=== PATIENT | male | born 1935 ===

== ENCOUNTER → 2016-12-05 | Outpatient (CLI) | payer MEDICARE, OTHER ==
--- NOTE | 2016-12-06 09:27 | RADRPT ---
PROCEDURE: XR left knee. CLINICAL INDICATION: Knee pain TECHNIQUE: AP weightbearing, PA weightbearing, lateral weightbearing and sunrise views are availab le for review. COMPARISON: None available FINDINGS: There is moderate osteoarthrosis involving the medial tibial femoral compartment (joint space narrow ing) and patellofemoral compartment (joint space narrowing and osteophytosis ). There is otherwise normal mineralization, architecture and alignment. No fractures are identified. No osseous lesions are identified. The soft tissues are unremarkable. IMPRESSION: Moderate osteoarthrosis involving the medial tibial femoral compartment (joint space narrowing) and patellofemoral compartment (joint space narrowing and osteophytosis ) RPTAT: HGDB .Slick Perera MD, MD Date Time Electronically viewed and signed by .Slick Perera MD, on 12/06/2016 09:27 .B/
== END | disposition home or self-care (01) ==
LOC: HKI 13:31
PROVIDERS: ATTEND Orthopaedic Surgery
DX: M17.12 Unilateral primary osteoarthritis, left knee (principal); M25.562 Pain in left knee
CPT/HCPCS: 73564; G0463

== ENCOUNTER → 2017-01-11 | Outpatient (CLI) | payer MEDICARE, OTHER ==
--- NOTE | 2017-01-11 14:11 | RADRPT ---
PROCEDURE: Limited x-ray of both lower extremities. CLINICAL INDICATION: Bilateral leg pain. TECHNIQUE: Single frontal view of both lower extremities was obtained from the hips to the calves. COMPARISON: None. FINDINGS: The hips are not completely included on the image. There is a metallic penile prosthesis. There ar e degenerative changes of both knees with osteophytes and bilateral medial joint compartment narrowi ng. IMPRESSION: 1. It is not completely included on the image. 2. Metallic penile prosthesis. 3. Moderate degenerative changes of both knees. RPTAT: QQ .Jam Smallwood MD, MD Date Time Electronically viewed and signed by .Jam Smallwood MD, on 01/11/2017 14:10 .R/
== END | disposition home or self-care (01) ==
LOC: HKI 09:55
PROVIDERS: ATTEND Orthopaedic Surgery
DX: M25.562 Pain in left knee (principal); M17.12 Unilateral primary osteoarthritis, left knee
CPT/HCPCS: 77073; G0463

== ENCOUNTER 2017-01-17 05:41 | Inpatient (IN) | payer MEDICARE, OTHER ==
[2017-01-17] VITALS (29 sets, daily range): BP systolic 136–164; BP diastolic 64–80; PULSE 50–90; RESP 9–21; Ht 181.6 cm; Wt 94.2 kg
[~2017-01-17] VITALS: Ht 181.6 cm; Wt 94.2 kg
[2017-01-17] MEDS ORDERED: EXPAREL NOTE (BUPIVICAINE LIPOSOMAL) XX SCH (06:00)
[2017-01-17] MEDS ORDERED: PREGABALIN 300 MG PO X1 PO SCH (06:00)
[2017-01-17] MEDS ORDERED: TRANEXAMIC ACID 910 MG in SOD CHLORIDE 0.9% 100 ML IVPB SCH (06:00)
[2017-01-17] MEDS ORDERED: TRANEXAMIC ACID 910 MG in SOD CHLORIDE 0.9% 90.9 ML IV SCH (06:00)
[2017-01-17] MEDS ORDERED: LACTATED RINGER'S 1,000 ML IV SCH (06:00)
[2017-01-17] MEDS ORDERED: CEFAZOLIN 2GM/50 ML (PMX) 50 ML X1 BEFORE INCISION IVPB SCH (06:00)
[2017-01-17] MEDS ORDERED: PAIN COCKTAIL-CEFUROXIME IRR SCH ×7 (06:00)
[2017-01-17] MEDS ORDERED: CELECOXIB 400 MG PO X1 DOSE PO SCH (06:00)
[2017-01-17] MEDS ORDERED: BUPIVACAINE LIPOSOME/PF 266 MG/20 ML VIAL INFIL SCH (06:00)
[2017-01-17] MEDS: oxyCODONE (CR) 10 MG TAB [oxyCONTIN] X1 DOSE PO SCH ×4 (06:33→12:49)
[2017-01-17] MEDS: traMADOL 50 MG TAB X 1 DOSE PO SCH ×2 (06:33→12:49)
[2017-01-17] MEDS ORDERED: ATOR40TA68 PO (06:47)
[2017-01-17] MEDS ORDERED: BENA20TA48 PO (06:47)
[2017-01-17] MEDS ORDERED: AMLO2.5T78 PO (06:47)
[2017-01-17] MEDS ORDERED: ETOMIDATE 20 MG INJ ONE (07:00)
[2017-01-17] MEDS ORDERED: SODIUM CL BACTERIOSTATIC 30 ML INJ ONE (07:02)
[2017-01-17] MEDS ORDERED: POLYMYXIN B 500000 UNIT INJ ONE (07:02)
[2017-01-17] MEDS ORDERED: VANCOMYCIN 1 GM INJ ONE (07:02)
[2017-01-17] MEDS ORDERED: GLYCOPYRROLATE 0.4 MG INJ ONE (07:13)
[2017-01-17] MEDS ORDERED: PROPOFOL 0 ML ONE (07:13)
[2017-01-17] MEDS ORDERED: NEOSTIGMINE 3 MG/3 ML SYRINGE ONE (07:13)
[2017-01-17] MEDS ORDERED: DEXAMETHASONE 4 MG/ML 1 ML INJ ONE (07:13)
[2017-01-17] MEDS ORDERED: FENTAnyl 50 MCG/ML VIAL ONE (07:13)
[2017-01-17] MEDS ORDERED: ROCURONIUM 50 MG INJ ONE (07:13)
[2017-01-17] MEDS ORDERED: CEFAZOLIN 1 GM INJ ONE (07:13)
[2017-01-17] MEDS ORDERED: ONDANSETRON 4 MG INJ ONE (07:13)
[2017-01-17] MEDS ORDERED: MIDAZOLAM 1 MG/ML 2 ML INJ ONE (07:13)
--- NOTE | 2017-01-17 07:20 | HPN ---
Date/Time of Note Date/Time of Note DATE: 01/17/17 TIME: 07:20 Interval H&P Admission Note Pt. seen H&P reviewed: No system changes No changes from H&P on 01/03/17 by SHELTON Park MD Jan 17, 2017 07:20
[2017-01-17] MEDS ORDERED: BACITRACIN 50000 UNITS INJ IRR ONE (08:17)
[2017-01-17] MEDS ORDERED: PROPOFOL 100 ML ONE (08:25)
[2017-01-17] MEDS ORDERED: TRIMETHOBENZAMIDE 100 MG/ML VIAL IM PRN (08:30)
[2017-01-17] MEDS ORDERED: LABETALOL HCL 20MG INJ IV PRN (08:30)
[2017-01-17] MEDS ORDERED: DIPHENHYDRAMINE 50 MG INJ IV PRN (08:30)
[2017-01-17] MEDS ORDERED: MEPERIDINE 25 MG INJ IV PRN (08:30)
[2017-01-17] MEDS ORDERED: HYDROmorphONE (0.2 MG/ML) 10ML SYG IV PRN ×3 (08:30)
[2017-01-17] MEDS ORDERED: ONDANSETRON 4 MG INJ IV PRN ×2 (08:30→10:00)
[2017-01-17] MEDS ORDERED: hydrALAzine 20 MG INJ IV PRN (08:30)
[2017-01-17] MEDS ORDERED: FENTAnyl 50 MCG/ML VIAL IV PRN ×3 (08:30)
[2017-01-17] MEDS ORDERED: MIDAZOLAM 1 MG/ML 2 ML INJ IV PRN (08:30)
[2017-01-17] MEDS ORDERED: EPHEDrine SULFATE 50 MG/5 ML SYG IV PRN (08:30)
[2017-01-17] MEDS ORDERED: MAGNESIUM HYDROXIDE 30ML CUP PO PRN (10:00)
[2017-01-17] MEDS ORDERED: ASPIRIN (EC) 325 MG TAB PO ONE ×2 (10:00→10:07)
[2017-01-17] MEDS ORDERED: NACL 0.9% 3 ML SYG IV SCH (10:00)
[2017-01-17] MEDS ORDERED: HYDROCODONE/APAP (5/325) TAB PO PRN ×2 (10:00)
[2017-01-17] MEDS ORDERED: DIPHENHYDRAMINE 25 MG CAP PO PRN (10:00)
[2017-01-17] MEDS ORDERED: BISACODYL 10 MG SUPP PR PRN (10:00)
[2017-01-17] MEDS ORDERED: NA PHOSPHATE/BIPHOS 133 ML ENEMA PR PRN (10:00)
--- NOTE | 2017-01-17 10:05 | OPR ---
Date/Time of Note Date/Time of Note DATE: 01/17/17 TIME: 09:58 Operative Report Free Text/Dictation Dictation # [id number] Procedure Date: Jan 17, 2017 Preoperative Diagnosis Left Knee OA Postoperative Diagnosis Same Operation Performed Left TKA Surgeon: SHELTON GIL MD case management assistant: RUTHY CHUNG PA-C Anesthesia: general, spinal Anesthesiologist: Rachid Tony M.D. Tourniquet Time: 59 min Estimated Blood Loss: 50 - 100 ml's Specimens Bone and soft tissue Tubes/Drains Hemovac x 1 Complications: None Pt Condition Post Procedure: stable Disposition: PACU SHELTON GIL MD Jan 17, 2017 10:05
[2017-01-17] MEDS: CEFAZOLIN 2 GM/50 ML (PMX) 50 ML IVPB SCH ×2 (10:15→18:09)
[2017-01-17 10:24] LABS: HEMATOCRIT 32.2 % (42.0-52.0); HEMOGLOBIN 10.5 g/dl (14.0-18.0)
--- NOTE | 2017-01-17 10:39 | PN ---
Date/Time of Note Date/Time of Note DATE: 01/17/17 TIME: 10:38 Assessment/Plan Lines/Catheters IV Catheter Type (from Nrsg): Peripheral IV Assessment/Plan Assessment/Plan Stable in PACU, s/p left TKA -cont abx -pain meds as needed -ASA/SCDs for DVT prophylaxis -OOB with PT -monitor drains -check AM labs -d/c mcneal in AM XR of the left knee shows good alignment with no evidence of fracture or dislocation Subjective 24 Hr Interval Summary Stable in PACU. Denies significant pain. Moving all extremities. Exam/Review of Systems Vital Signs Vitals Vital Signs Date Time Temp Pulse Resp B/P Pulse Ox O2 Delivery O2 Flow Rate FiO2 01/17/17 10:20 84 11 152/75 98 3.0 01/17/17 09:57 97.9 01/17/17 06:49 Room Air Exam Free Text/Dictation Dressing dry Incision clean, dry, and intact without redness or drainage Thigh soft 5/5 Quadriceps, Tibialis Anterior, EHL, Gastroc, Soleus, Peroneals Normal sensation Palpable DT/PT, CR <2 sec No distal edema RUTHY CHUNG PA-C Jan 17, 2017 10:39
[2017-01-17 11:02] LABS: POTASSIUM 4.5 mmol/L (3.5-5.1)
[2017-01-17 11:05] LABS: CALCIUM 9.1 mg/dl (8.4-10.2)
--- NOTE | 2017-01-17 11:29 | RADRPT ---
PROCEDURE: XR Knee. CLINICAL INDICATION: Status post knee replacement TECHNIQUE: AP and lateral view of the left knee were obtained. The images reviewed on a PACS work station. COMPARISON: December 05, 2016 FINDINGS: Complete left knee replacement is identified. Prosthetic components are in appropriate position and alignment. No fractures or destructive lesions are observed. Surgical drain is seen in the knee. Soft tissue air is procedural in nature. IMPRESSION: Status post left knee replacement. Prosthetic components are in appropriate position and alignment. RPTAT: AA .Duke Flood MD, MD Date Time Electronically viewed and signed by .Duke Flood MD, MD on 01/17/2017 11:28 .P/
[2017-01-17] MEDS: ACETAMINOPHEN 1000MG/100ML IV 100 ML IVPB SCH ×3 (12:45→23:50)
[2017-01-17] MEDS: traMADol 50 MG TAB PO SCH ×3 (12:46→23:53)
[2017-01-17] MEDS: LACTATED RINGER'S 1,000 ML IV SCH ×2 (12:46→17:46)
[2017-01-17] MEDS ORDERED: TRANEXAMIC ACID 940 MG in SOD CHLORIDE 0.9% 100 ML IVPB ONE ×2 (13:00→16:00)
--- NOTE | 2017-01-17 14:38 | CONS ---
DATE OF ADMISSION: 01/17/2017 DATE OF CONSULTATION: 01/17/2017 POSTOPERATIVE MEDICAL CONSULTATIVE NOTE Thank you very much for allowing me to evaluate this 81-year-old male who just underwent left knee r eplacement. HISTORICAL EVENTS: As you well know, this patient has had progressive disabling pain involving his left knee and elected to proceed with surgery. Postoperatively, he is comfortable with minimal left knee discomfort in the absence of cough, wheezing, shortness of breath, nausea, vomiting, abdominal , or chest pain. PAST MEDICAL HISTORY: Includes: 1. Known coronary artery disease, undergoing multivessel coronary intervention with preoperative ca rdiac evaluation noted. 2. History of hypertension. 3. Hyperlipidemia. 4. Known carotid disease, asymptomatic. 5. History of prostate cancer and surgery for the same. 6. Allergic asthma. 7. History of penile implant. ALLERGIES: NONE. CURRENT MEDICATIONS: 1. Amlodipine 5 mg. 2. Benazepril 20 3. Atorvastatin 20 mg. 4. Baby aspirin 81 mg. PHYSICAL EXAMINATION: GENERAL: Reveals a spry male in no acute distress. VITAL SIGNS: BP 122/80, pulse 70, respirations of 20, he was afebrile. EYES: Extraocular muscles were full. NOSE, MOUTH, AND THROAT: Normal. NECK: Supple. There was no jugular venous distention, thyroid enlargement, or adenopathy. Carotid s 2+. LUNGS: Clear. HEART: Rhythm regular, no murmur. No third or fourth sound. ABDOMEN: Nontender. Liver and spleen were not palpable. No masses or tenderness were noted. EXTREMITIES: No edema. Calves nontender. IMPRESSION AND PLAN: 1. Stable postop left knee replacement. 2. History of coronary disease. Will be alert to symptoms of coronary insufficiency. 3. Hypertension. Will continue his BP meds and monitor BP throughout. 4. We will evaluate daily for signs and symptoms of thromboembolic disease despite appropriate DVT prophylaxis. Dictated By: ALEJANDRO ANN/FRANK Conf#: [id number] DID#: [id number]
[2017-01-17] MEDS ORDERED: BACITRACIN 50000 UNITS INJ ONE (15:02)
[2017-01-17] MEDS: AMLODIPINE 5 MG TAB PO SCH (15:06)
--- NOTE | 2017-01-17 15:53 | OPR ---
DATE OF OPERATION: 01/17/2017 PREOPERATIVE DIAGNOSIS: Left knee osteoarthritis. POSTOPERATIVE DIAGNOSIS: Left knee osteoarthritis. OPERATION PERFORMED: Left total knee arthroplasty. SURGEON: Shelton Cavazos MD [employer] CONSULTANT: Ricci GALARZA COMPONENTS USED: DePuy Attune size 7 femoral component, size 7 tibial baseplate, 7 mm polyethylene insert, 41 patellar button. ANESTHESIA: Spinal plus general endotracheal intubation, plus paratubal injection. ANESTHESIOLOGIST: Dr. Tony TOURNIQUET TIME: 59 minutes. ESTIMATED BLOOD LOSS: 50 mL. INTRAVENOUS FLUIDS: 2500 mL crystalloid. SPECIMENS: Bone and soft tissue. DRAINS: Hemovac x1. COMPLICATIONS: None. DISPOSITION: Patient tolerated the procedure well and was taken to the recovery room in stable cond ition. INDICATIONS: The patient is an 81-year-old gentleman who has had progressive worsening pain in the left knee with radiographic evidence of severe osteoarthritis. He has failed nonsurgical means of t reatment to control his pain including activity modifications, pain medications, intra-articular inj ections and ambulatory assist devices. Despite these measures, he has had worsening pain and I felt he would benefit from a total knee arthroplasty. procedure. PROCEDURE: The risks, benefits, and alternatives of the procedure were explained in detail to the p atient. I explained the risks of the surgery to include but not be limited to, bleeding and possibl e need for blood transfusion; infection; pain; stiffness; neurovascular injury with possible numbnes s, weakness, and/or paralysis anywhere from the knee down to the toes; fracture; instability; disloc ation; wear and/or loosening of the prosthesis and possible need for future revision; blood clots; p ulmonary embolism; and anesthetic complications such as heart attack, stroke, GI bleed, pneumonia, a nd/or . Ample time was allowed for the patient to ask questions, all of which were addressed a nd answered. The patient understood the risks involved and wished to proceed. Informed consent was signed prior to the procedure. PROCEDURE: The patient's left knee was initialed with a marking pen in the preoperative area to iden tify the correct operative site. The patient was brought to the operating room and transferred from the [facility] to the operating table where a spinal anesthetic was administered. The patient was then anesthetized and intubated. A Long catheter was placed. A timeout was performed to confi rm that the left leg was the correct operative site. The patient was given 2 g of Ancef within one hour prior to the procedure. A tourniquet was placed on the operative proximal thigh. The operativ e knee and lower extremity were prepped and draped in the usual sterile fashion. The operative lowe r extremity was elevated and exsanguinated with an Esmarch tourniquet. The proximal thigh tournique t was inflated to 300 mmHg. The knee was flexed. A midline incision was made and carried down through the subcutaneous tissue a nd fat with sharp dissection. Limited medial and lateral flaps were raised. A median parapatellar arthrotomy was performed. Synovial fluid was normal in color and consistency. The patella was yina ed and the knee flexed. There were severe tricompartmental osteoarthritic changes noted. A medial r elease was performed at the joint line to the midcoronal plane. The ACL and PCL and remnants of the menisci were excised. The stepped drill was used to open up the femoral canal which was irrigated and sucked dry. The intramedullary guide guru was passed up the femur, and the distal cutting block was pinned into place for a 6 degree valgus cut, taking 10 mm of bone off distally. The oscillating saw was used to make the cut. The tibia was subluxed anteriorly. The tibial cutoff jig was placed over the center of the talus d istally and over the junction of the medial and middle third of the tibial tubercle proximally. The guide was pinned into place and the oscillating saw was used to make the cut. The tibia was sized. The extension gap was checked and accommodated a 7 mm spacer block with the knee in full extension. There was no varus or valgus instability. At this point, the femur was sized with the posterior referencing guide. Two holes were drilled in 3 degrees of external rotation. The two holes were in line with the transepicondylar axis, perpendi cular to [place]'s line, and in line with the tibial cutoff jig brought up with the knee flexed 90 degrees and tensed with 2 lamina spreaders, suggesting the femoral rotation was correct. The four- in-one cutting block was pinned into place. The anterior and posterior cuts and chamfer cuts were m justen with the oscillating saw. The flexion gap was checked and accommodated the 7 mm spacer block at 90 degrees. There was no varus or valgus instability, suggesting the flexion and extension gaps we re now equal. The central box was cut out on the femur. The tibia was drilled and punched in proper rotation. Tri al components were placed into position with a trial insert. The patella was cut from 26 mm down to 15 mm and sized. Three holes were drilled and the trial button placed in position. With all the t rials now in place, the knee was taken through range of motion and came to full extension as evidenc ed by the fact that with the foot on my abdomen and axial loading, there was no tendency for the kne e to flex. The knee was able to be flexed to 125 degrees with good patellar tracking with no latera l tilt or subluxation. At this point, I was satisfied with the overall range of motion, stability, and patellar tracking. The trials were removed. The real components were opened. Two bags of cement were mixed, one with and one without premixed antibiotic. The knee was irrigated with antibiotic saline and sucked dry. Once the cement was in a doughy stage, the real components were cemented into place. The knee was held in full extension, and the patellar component was held with a patellar clamp. All excess cemen t was removed with curettes. As the cement was hardening, the synovial/capsular layer was infiltrat ed with a mixture of 150 mg of 0.5% Bupivacaine, 8 mg of Duramorph, 300 mcg of epinephrine, 30 mg of Toradol, 100 mcg of clonidine, 750 mg of cefuroxime and 86 mL of normal saline, followed by an inje ction of 266 mg of liposomal Bupivacaine. A Hemovac drain was placed in the deep portion of the wound and brought out the anterolateral thigh. Once the cement was completely hardened, the trial liner was removed, and the real insert was open ed. The tourniquet was let down, and there was good hemostasis. The knee was then irrigated with a mixture of Betadine/saline and then antibiotic saline with pulsatile lavage. The real insert was i mpacted into the tibia and reduced onto to the femur. The arthrotomy was closed with a few interrupted #1 Ethibond in a [id number] fashion, and then closed in a watertight fashion with a running #2 StrataFix suture. Knee flexion was checked against gravity and came to 125 degrees. The subcutaneous layer was irrigated and closed with 2-0 StrataFi x, and then 3-0 Vicryl and then evert on the skin. The wound was covered with an occlusive dressi ng, and secured with cast padding and a bias dressing. The drain was secured with 3-0 nylon. The sponge and needle counts were correct at the end of the case. The patient was then awakened, ex tubated, and taken to the recovery room in stable condition. Dictated By: SHELTON PARIS/NTS Conf#: [id number] DID#: [id number]
[2017-01-17] MEDS: PANTOPRAZOLE (EC) 40 MG TAB PO SCH (18:09)
--- NOTE | 2017-01-17 19:55 | CONS ---
DATE OF ADMISSION: 01/17/2017 DATE OF CONSULTATION: 01/17/2017 REQUESTING PHYSICIAN: Dr. Evan Cavazos Dear Ghulam, Thank you for asking me to help in the care of this nice patient. HISTORY OF PRESENT ILLNESS: He is an 81-year-old male who was admitted to undergo a left total knee replacement, and because of his urological past history of prostate cancer and status post prostate ctomy and also insertion of a semirigid penile implant, a urological consultation was requested to ry to also catheterize the patient prior to his surgical procedure and avoid any traumatic insertion of the Long catheter. The patient did have prostate cancer many years back in the year 1999, unde rwent radical suprapubic prostatectomy in [place], and he also has had problem with erections, and he had a semirigid penile implant done about 2 years ago. He has been voiding well, and there is no history of hematuria and no history of urinary incontinence. PAST MEDICAL HISTORY: The patient's other past medical history includes a history of coronary arter y disease and has undergone multivessel coronary intervention before. He does have a history of hyp ertension, hyperlipidemia, carotid artery disease, asthma. ALLERGIES: THE PATIENT HAS NO KNOWN DRUG ALLERGIES. HOME MEDICATIONS: Include: 1. Amlodipine 5 mg daily. 2. Benazepril 20 mg. 3. Atorvastatin 20 mg. 4. Baby aspirin. PHYSICAL EXAMINATION: GENERAL: An elderly male. He weighs 94.2 kg, and he is 71.5 inches tall. VITAL SIGNS: Temperature was 97.1 on admission, the pulse 50, the blood pressure 142/65, respiratio ns 18. NECK: Supple. ABDOMEN: Soft. There is no abdominal mass palpable. He does have a scar in the low mid abdomen, a nd it healed well. One hardly could see it. EXTERNAL GENITALIA: He does have penile implant, and both testes are normal in the scrotum. EXTREMITIES: He does have arthritis of his knees, and he is going to have the surgery for the left knee. IMPRESSION: 1. History of prostate cancer, status post radical retropubic prostatectomy. 2. History of erectile dysfunction post prostatectomy and insertion of a semirigid penile implant. PLAN: I did go ahead and prep the genital area, and then I lubricated the urethra with 10 mL of K-Y jelly and then inserted a 16-Malay Long catheter that did go in without any difficulty. Clear ur ine was obtained, and the urine was sent for culture and sensitivity. Then the patient after that w as taken to the operating room to undergo the procedure that you had planned for him. Dictated By: CORIE CHACON/FRANK Conf#: [id number] DID#: [id number]
[2017-01-17] MEDS: PREGABALIN 25 MG CAP PO SCH (21:15)
[2017-01-17] MEDS: ATORVASTATIN 20 MG TAB PO SCH (21:15)
[2017-01-17] MEDS: DOCUSATE SODIUM 100 MG CAP PO SCH (21:15)
[2017-01-17] MEDS: BENAZEPRIL 20 MG TAB PO SCH (21:16)
[2017-01-18] VITALS: BP 130/60; RESP 17
[2017-01-18] MEDS: CEFAZOLIN 2 GM/50 ML (PMX) 50 ML IVPB SCH (01:57)
[2017-01-18] MEDS: LACTATED RINGER'S 1,000 ML IV SCH (01:57)
[2017-01-18 05:17] LABS: HEMATOCRIT 30.6 % (42.0-52.0); HEMOGLOBIN 9.8 g/dl (14.0-18.0)
[2017-01-18 05:28] LABS: POTASSIUM 4.7 mmol/L (3.5-5.1)
[2017-01-18 05:30] LABS: CREATININE 0.95 mg/dl (0.61-1.24)
[2017-01-18 05:31] LABS: CALCIUM 9.5 mg/dl (8.4-10.2)
[2017-01-18] MEDS: PANTOPRAZOLE (EC) 40 MG TAB PO SCH ×2 (05:56→17:20)
[2017-01-18] MEDS: ACETAMINOPHEN 1000MG/100ML IV 100 ML IVPB SCH (05:56)
[2017-01-18] MEDS: traMADol 50 MG TAB PO SCH ×3 (05:57→17:21)
[2017-01-18 08:25] VITALS: BP 137/62; RESP 18
--- NOTE | 2017-01-18 08:32 | CONS ---
Date/Time of Note Date/Time of Note DATE: 01/18/17 TIME: 08:30 Assessment/Plan Assessment/Plan Additional Assessment/Plan 1. Stable postop left knee replacement, doing well 2. History of coronary disease, Asx 3. Hypertension, controlled 4. Mild hyponatremia, will change IV Consultation Date/Type/Reason Admit Date/Time Jan 17, 2017 at 05:41 Initial Consult Date Detailed Summary Cardiovascular: No chest pain, No lightheadedness Gastrointestinal: no complaints Genitourinary: other (mcneal removed and voided) Musculoskeletal: bone/joint pain (mild left knee pain) Exam/Review of Systems Vital Signs Vitals Vital Signs Date Time Temp Pulse Resp B/P Pulse Ox O2 Delivery O2 Flow Rate FiO2 01/18/17 08:25 98.3 55 18 137/62 100 01/17/17 20:00 Nasal Cannula 2.0 Intake and Output 01/17/17 01/17/17 01/18/17 15:00 23:00 07:00 Intake Total 2809.1 ml 1248.9 ml 2426 ml Output Total 350 ml 700 ml 2040 ml Balance 2459.1 ml 548.9 ml 386 ml Exam Neck: No jvd Respiratory: clear to auscultation Cardiovascular: regular rate and rhythm Gastrointestinal: soft Extremities: edema (and no calf tend) Results Result Diagram: 01/18/1744401/18/17444 Results 24 hrs Laboratory Tests Test 01/17/17 10:10 01/18/17 04:45 Hemoglobin 10.5 L 9.8 L Hematocrit 32.2 L 30.6 L Sodium Level 135 132 L Potassium Level 4.5 4.7 Chloride Level 103 99 Carbon Dioxide Level 25 26 Anion Gap 12 12 Blood Urea Nitrogen 27 H 24 H Creatinine 1.00 0.95 Glucose Level 120 142 Calcium Level 9.1 9.5 Medications Medications Current Medications Miscellaneous Information 1 ea NOTE XX ; Start 01/17/17 at 06:00; Stop 01/21/17 at 05:59 Atorvastatin Calcium (Lipitor) 20 mg QHS PO Last administered on 01/17/17t 21: 15; Admin Dose 20 MG; Start 01/17/17 at 21:00 Celecoxib 200 mg 200 mg DAILY PO ; Start 01/18/17 at 09:00 Acetaminophen (Ofirmev 1000mg/ 100ml Iv) 100 ml @ 400 mls/hr Q6 IVPB Last administered on 01/18/17 05:56; Admin Dose 400 MLS/HR; Start 01/17/17 at 12:00 ; Stop 01/18/17 at 11:59 Tramadol HCl (Ultram) 50 mg Q6 PO Last administered on 01/18/17 05:57; Admin Dose 50 MG; Start 01/17/17 at 12:00; Stop 01/20/17 at 11:59 Acetaminophen/ Hydrocodone Bitart ([place] (5/325)) 1 tab Q4H PRN PO PAIN LEVEL 1 -3; Start 01/17/17 at 10:00 Acetaminophen/ Hydrocodone Bitart ([place] (5/325)) 2 tab Q4H PRN PO PAIN LEVEL 4 -7; Start 01/17/17 at 10:00 Hydromorphone HCl (Dilaudid) 1 mg Q3H PRN IV PAIN LEVEL 8-10; Start 01/17/17 at 10:00 Ondansetron HCl (Zofran Inj) 4 mg Q6H PRN IV NAUSEA AND/OR VOMITING; Start at 10:00 Bisacodyl (Dulcolax Supp) 10 mg Q12H PRN DE CONSTIPATION; Start 01/17/17 at 10: 00 Magnesium Hydroxide (Milk Of Mag) 30 ml BID PRN PO CONSTIPATION; Start at 10:00 Sodium Biphosphate/ Sodium Phosphate (Fleet Enema) 133 ml DAILY PRN DE CONSTIPATION; Start 01/17/17 at 10:00 Docusate Sodium (Colace) 100 mg BID PO Last administered on 01/17/17 21:15; Admin Dose 100 MG; Start 01/17/17 at 21:00 Diphenhydramine HCl (Benadryl) 25 mg Q6H PRN PO PRURITUS; Start 01/17/17 at 10: 00 Aspirin (Ecotrin) 325 mg BID PO ; Start 01/18/17 at 09:00 Pantoprazole (Protonix Tab) 40 mg BID@06,18 PO Last administered on 01/18/17 05:56; Admin Dose 40 MG; Start 01/17/17 at 18:00 Pregabalin (Lyrica) 50 mg BID PO Last administered on 01/17/17 21:15; Admin Dose 50 MG; Start 01/17/17 at 21:00 Amlodipine Besylate (Norvasc) 5 mg DAILY PO Last administered on 01/17/17 15: 06; Admin Dose 5 MG; Start 01/17/17 at 14:30 Benazepril HCl (Lotensin) 20 mg HS PO Last administered on 01/17/17 21:16; Admin Dose 20 MG; Start 01/17/17 at 21:00 ALEJANDRO JOHNSON MD Jan 18, 2017 08:32
[2017-01-18] MEDS: SOD CHLORIDE 0.9% 1,000 ML IV SCH ×3 (08:50→21:50)
[2017-01-18] MEDS: DOCUSATE SODIUM 100 MG CAP PO SCH ×2 (08:50→21:00)
[2017-01-18] MEDS: PREGABALIN 25 MG CAP PO SCH (08:51)
[2017-01-18] MEDS: AMLODIPINE 5 MG TAB PO SCH (08:51)
[2017-01-18] MEDS: ASPIRIN (EC) 325 MG TAB PO SCH ×2 (08:51→21:00)
[2017-01-18] MEDS: CELECOXIB 200 MG CAP PO SCH (08:51)
--- NOTE | 2017-01-18 08:58 | PN ---
Date/Time of Note Date/Time of Note DATE: 01/18/17 TIME: 08:57 Assessment/Plan Lines/Catheters IV Catheter Type (from Nrsg): Peripheral IV Long in Place (from Nrsg): Yes Assessment/Plan Assessment/Plan Stable POD #1, s/p left TKA -d/c abx -pain meds as needed -ASA/SCDs for DVT prophylaxis -OOB with PT -drain removed -check AM labs -d/c planning. Will plan to go home upon discharge Subjective 24 Hr Interval Summary No acute overnight events. Denies pain. Began PT yesterday. VSS, afebrile. Will plan to go home upon discharge. Exam/Review of Systems Vital Signs Vitals Vital Signs Date Time Temp Pulse Resp B/P Pulse Ox O2 Delivery O2 Flow Rate FiO2 01/18/17 08:25 98.3 55 18 137/62 100 01/17/17 20:00 Nasal Cannula 2.0 Intake and Output 01/17/17 01/17/17 01/18/17 15:00 23:00 07:00 Intake Total 2809.1 ml 1248.9 ml 2426 ml Output Total 350 ml 700 ml 2040 ml Balance 2459.1 ml 548.9 ml 386 ml Exam Free Text/Dictation Hemovac: 340cc Dressing dry Incision clean, dry, and intact without redness or drainage Thigh soft 5/5 Quadriceps, Tibialis Anterior, EHL, Gastroc, Soleus, Peroneals Normal sensation Palpable DT/PT, CR <2 sec No distal edema Results Result Diagram: 01/18/175 01/18/17 0445 RUTHY CHUNG PA-C Jan 18, 2017 08:58
[2017-01-18] MEDS ORDERED: AMLODIPINE 5 MG TAB PO SCH (09:00)
[2017-01-18] MEDS ORDERED: BENAZEPRIL 20 MG TAB PO SCH (09:00)
[2017-01-18 10:08] LABS: ADD UMIC YES; URINE BILIRUBIN (Dip) NEGATIVE (NEGATIVE); URINE BLOOD (Dip) 2+ (NEGATIVE); URINE COLOR LT. YELLOW (YELLOW); URINE GLUCOSE (Dip) NEGATIVE (NEGATIVE); URINE KETONES (Dip) NEGATIVE (NEGATIVE); URINE LEUKOCYTE ESTERASE (Dip) TRACE (NEGATIVE); URINE NITRITE (Dip) NEGATIVE (NEGATIVE); URINE TOTAL PROTEIN (Dip) NEGATIVE (NEGATIVE); URINE UROBILINOGEN (Dip) 0.2 E.U./dL (0.1-1.0)
--- NOTE | 2017-01-18 15:07 | RADRPT ---
Vent Rate: 56 bpm RR Interval: 0 msec ME Interval: 170 msec QRS Duration: 104 msec QT Interval: 482 msec QTC Interval: 465 msec P-R-T [place]: 44 - -4 - 62 degrees Sinus bradycardia Otherwise normal ECG Electronically Signed By: Jose Jackson [id number]
--- NOTE | 2017-01-18 18:35 | RADRPT ---
PROCEDURE: XR Chest. CLINICAL INDICATION: Chest pain. TECHNIQUE: Portable AP upright view of the chest was obtained. COMPARISON: None. FINDINGS: The cardiomediastinal silhouette is mildly enlarged. The lungs are clear of acute infiltrates, mild senescent age-related interstitial changes are noted. There is no evidence for pleural effusion, p neumothorax or pulmonary vascular congestion. Demineralization is identified without evidence of ac luz osseous abnormality. Calcification is visible within the aorta. RPTAT:HJJR IMPRESSION: 1. Cardiac silhouette enlargement and mild age-related senescent changes of the lung parenchyma with out evidence for acute intrathoracic pathology. 2. Aortic atherosclerosis is present. Physician Radha Date Time Electronically viewed and signed by Pierce Das Physician on 01/18/2017 18:35 JR/
[2017-01-18 19:47] VITALS: BP 171/94; RESP 19
[2017-01-18 20:00] VITALS: BP 140/70; PULSE 78; RESP 16
[2017-01-18] MEDS: HYDROmorphONE 1 MG/ML SYG IV PRN (20:05)
[2017-01-18] MEDS: BENAZEPRIL 20 MG TAB PO SCH (21:00)
[2017-01-18] MEDS: ATORVASTATIN 20 MG TAB PO SCH (21:00)
[2017-01-18] MEDS: PREGABALIN 50 MG CAP PO SCH (21:00)
[2017-01-19 05:31] LABS: HEMATOCRIT 29.6 % (42.0-52.0); HEMOGLOBIN 9.5 g/dl (14.0-18.0)
[2017-01-19 05:42] LABS: POTASSIUM 4.6 mmol/L (3.5-5.1)
[2017-01-19 05:45] LABS: CREATININE 0.95 mg/dl (0.61-1.24)
[2017-01-19 05:46] LABS: CALCIUM 9.4 mg/dl (8.4-10.2)
[2017-01-19] MEDS: PANTOPRAZOLE (EC) 40 MG TAB PO SCH (06:00)
[2017-01-19] MEDS: traMADol 50 MG TAB PO SCH ×5 (06:00→23:22)
[2017-01-19 07:51] VITALS: BP 199/77; RESP 18
[2017-01-19 08:04] VITALS: BP 156/75; PULSE 50; RESP 20
[2017-01-19] MEDS: SOD CHLORIDE 0.9% 1,000 ML IV SCH ×2 (08:41→23:33)
[2017-01-19] MEDS: ASPIRIN (EC) 325 MG TAB PO SCH ×2 (09:00→20:19)
[2017-01-19] MEDS: PREGABALIN 50 MG CAP PO SCH ×2 (09:00→20:21)
[2017-01-19] MEDS: AMLODIPINE 5 MG TAB PO SCH (09:00)
[2017-01-19] MEDS: DOCUSATE SODIUM 100 MG CAP PO SCH ×2 (09:00→20:20)
[2017-01-19] MEDS: CELECOXIB 200 MG CAP PO SCH (09:00)
[2017-01-19] MEDS: HYDROmorphONE 1 MG/ML SYG IV PRN (09:10)
[2017-01-19] MEDS ORDERED: ACETAMINOPHEN 1000MG/100ML IV 100 ML IVPB PRN (09:30)
[2017-01-19] MEDS ORDERED: HYDROmorphONE 1 MG/ML SYG IV PRN (09:30)
[2017-01-19] MEDS ORDERED: hydrALAzine 20 MG INJ IV PRN (09:30)
[2017-01-19] MEDS: ACETAMINOPHEN 1000MG/100ML IV 100 ML IVPB PRN ×2 (11:50→20:21)
[2017-01-19 11:52] VITALS: BP 161/92; PULSE 75; RESP 18
--- NOTE | 2017-01-19 12:17 | CONS ---
Date/Time of Note Date/Time of Note DATE: 01/19/17 TIME: 12:11 Assessment/Plan Assessment/Plan Additional Assessment/Plan 1. Doing well post op left knee replacement. 2. Unusual dysphagia without prior hx and Right upper quad pain ? cause, gi to see, video esophagram is pending. 3. BP sl increased, will change to iv meds Consultation Date/Type/Reason Admit Date/Time Jan 17, 2017 at 05:41 Detailed Summary Respiratory: No shortness of breath Cardiovascular: No chest pain, No orthopenea Gastrointestinal: other (approx 24 hrs aftrer surg, 2 hrs after lunch noted diff swallowing and left upper quad pain and dnies spont vomiting) Genitourinary: no complaints Musculoskeletal: bone/joint pain (mild left knee pain) Exam/Review of Systems Vital Signs Vitals Vital Signs Date Time Temp Pulse Resp B/P Pulse Ox O2 Delivery O2 Flow Rate FiO2 01/19/17 11:52 75 18 161/92 01/19/17 08:04 96 Room Air 01/19/17 07:51 98.5 01/17/17 20:00 2.0 Intake and Output 01/18/17 01/18/17 01/19/17 14:59 22:59 06:59 Intake Total 1500 ml 1500 ml Output Total 500 ml 1200 ml Balance 1000 ml 300 ml Exam Neck: No jvd Respiratory: clear to auscultation Cardiovascular: regular rate and rhythm Gastrointestinal: soft Extremities: No edema (and no calf tend) Results Result Diagram: 01/19/17 0447 01/19/177 Results 24 hrs Laboratory Tests Test 01/19/17 04:47 Hemoglobin 9.5 L Hematocrit 29.6 L Sodium Level 141 Potassium Level 4.6 Chloride Level 105 Carbon Dioxide Level 30 Anion Gap 11 Blood Urea Nitrogen 18 Creatinine 0.95 Glucose Level 95 # Calcium Level 9.4 Medications Medications Current Medications Miscellaneous Information 1 ea NOTE XX ; Start 01/17/17 at 06:00; Stop 01/21/17 at 05:59 Atorvastatin Calcium (Lipitor) 20 mg QHS PO Last administered on 01/17/17 21: 15; Admin Dose 20 MG; Start 01/17/17 at 21:00 Celecoxib (Celebrex) 200 mg DAILY PO Last administered on 01/18/17 08:51; Admin Dose 200 MG; Start 01/18/17 at 09:00 Tramadol HCl (Ultram) 50 mg Q6 PO Last administered on 01/18/17 12:02; Admin Dose 50 MG; Start 01/17/17 at 12:00; Stop 01/20/17 at 11:59 Acetaminophen/ Hydrocodone Bitart ([place] (5/325)) 1 tab Q4H PRN PO PAIN LEVEL 1 -3; Start 01/17/17 at 10:00 Acetaminophen/ Hydrocodone Bitart ([place] (5/325)) 2 tab Q4H PRN PO PAIN LEVEL 4 -7; Start 01/17/17 at 10:00 Ondansetron HCl (Zofran Inj) 4 mg Q6H PRN IV NAUSEA AND/OR VOMITING; Start at 10:00 Bisacodyl (Dulcolax Supp) 10 mg Q12H PRN [place] CONSTIPATION; Start 01/17/17 at 10: 00 Magnesium Hydroxide (Milk Of Mag) 30 ml BID PRN PO CONSTIPATION; Start at 10:00 Sodium Biphosphate/ Sodium Phosphate (Fleet Enema) 133 ml DAILY PRN [place] CONSTIPATION; Start 01/17/17 at 10:00 Docusate Sodium (Colace) 100 mg BID PO Last administered on 01/18/17 08:50; Admin Dose 100 MG; Start 01/17/17 at 21:00 Diphenhydramine HCl (Benadryl) 25 mg Q6H PRN PO PRURITUS; Start 01/17/17 at 10: 00 Aspirin (Ecotrin) 325 mg BID PO Last administered on 01/18/17 08:51; Admin Dose 325 MG; Start 01/18/17 at 09:00 Pantoprazole (Protonix Tab) 40 mg BID@06,18 PO Last administered on 01/18/17 05:56; Admin Dose 40 MG; Start 01/17/17 at 18:00 Amlodipine Besylate (Norvasc) 5 mg DAILY PO Last administered on 01/18/17 08: 51; Admin Dose 5 MG; Start 01/17/17 at 14:30 Benazepril HCl 20 mg 20 mg HS PO Last administered on 01/17/17 21:16; Admin Dose 20 MG; Start 01/17/17 at 21:00 Sodium Chloride (NS) 1,000 ml @ 100 mls/hr Q10H IV Last administered on 08:41; Admin Dose 100 MLS/HR; Start 01/18/17 at 08:30 Hydralazine HCl 10 mg 10 mg Q6H PRN IV ELEVATED BLOOD PRESSURE Last administered on 01/19/17 11:51; Admin Dose 10 MG; Start 01/19/17 at 09:30 Acetaminophen (Ofirmev 1000mg/ 100ml Iv) 100 ml @ 400 mls/hr Q6H PRN IVPB PAIN 7-1010 Last administered on 01/19/17 11:50; Admin Dose 400 MLS/HR; Start 01/19/17 at 09:30 Hydromorphone HCl 0.5 mg 0.5 mg Q6H PRN IV PAIN; Start 01/19/17 at 09:30 Acetaminophen (Ofirmev 1000mg/ 100ml Iv) 100 ml @ 400 mls/hr Q12 PRN IVPB MODERATE PAIN LEVEL 4-6; Start 01/19/17 at 09:30 Pantoprazole (Protonix Iv) 40 mg BID@06,18 IV ; Start 01/19/17 at 18:00; Status UNV Clonidine HCl (Catapres-Tts 1 Patch) 1 patch Q7D TRANSDERM ; Start 01/19/17 at 12:30; Status UNV ALEJANDRO JOHNSON MD Jan 19, 2017 12:17
--- NOTE | 2017-01-19 12:55 | CONS ---
DATE OF ADMISSION: 01/17/2017 DATE OF CONSULTATION: 01/19/2017 TYPE OF CONSULTATION: 01/19/2017. Thank you for having me see this patient. HISTORY OF PRESENT ILLNESS: As you know, he is a 61-year-old gentleman who came in for left knee re placement on Monday. The day after knee replacement, he noticed heartburn and difficulty swallowin g. He noticed that food has difficulty going down. He also noticed some right breast pain. He audi n had trouble swallowing his saliva. Because of this, he has been made n.p.o. In the past, he has had gastroesophageal reflux symptoms, but has not required medication for that. Prior to his surger y, he had no similar problems. Of note, he complained to Dr. Lindsey of abdominal pain, but he denie s that complaints currently. He does admit to some distention and not being able to pass a bowel mo vement since admission. His last colonoscopy was [address] Mckeon. He denies any dysphagi a or odynophagia prior to this current episode. He denies any nausea, vomiting, fever or chills cur rently. PAST MEDICAL HISTORY: Significant for hospitalization for radical prostatectomy, cardiac stents and penile implant. ADULT ILLNESSES: Significant for hypertension. CHILDHOOD ILLNESSES: Denies rheumatic fever or scarlet fever. ALLERGIES: NONE KNOWN. INJURIES: None. MEDICATIONS: Prior to admission include: 1. Atorvastatin. 2. Amlodipine. 3. Benazepril. SOCIAL HISTORY: The patient is retired from [employer]. He does not smoke. He drinks 1 to 2 alcoholic beverages nightly. FAMILY HISTORY: Noncontributory. REVIEW OF SYSTEMS: Negative except as noted above. PHYSICAL EXAMINATION: GENERAL: Shows patient is well-developed, well-nourished elderly white male lying comfortably in be d. VITAL SIGNS: Temperature 98.5, pulse 74, respirations 18, blood pressure 161/92. SKIN: Clear. HEENT: Negative. LUNGS: Clear to percussion and auscultation. CARDIAC: No murmurs or gallops. ABDOMEN: Soft, nontender, gaseous distention, no rebound or rigidity. RECTAL: Solid hard ball of stool in rectum. LABORATORY DATA: Pending. IMPRESSION: It is unclear as to the reason for the patient's swallowing issues. Nonetheless, given that they occurred after surgery, it is most likely they are related to the patient's intubation. Alternatively, the does have longstanding problems with reflux and this certainly may be an exacerba tion of that. In terms of the patient's abdominal distention, I do note that he is impacted and has not had a bowel movement for the 3 days since admission. PLAN: 1. Discussed above with Dr. Lindsey. 2. Await laboratory data ordered by Dr. Lindsey. 3. Await video swallow. 4. Continue IV Protonix q.12 h. 5. Tums to be dissolved in mouth. 6. Further recommendations to follow above and clinical course. Dictated By: JULIA PARMAR/FRANK Conf#: [id number] DID#: [id number]
[2017-01-19] MEDS ORDERED: CLONIDINE 0.1 MG/24 HR PATCH TRANSDERM SCH (13:00)
[2017-01-19 13:44] LABS: ADD SCAN DIFF NO
[2017-01-19 13:46] LABS: BASOPHILS % 0.1 % (0.0-2.0); EOSINOPHILS # 0.2 10^3/ul (0.0-0.5); HEMATOCRIT 30.2 % (42.0-52.0); HEMOGLOBIN 10.1 g/dl (14.0-18.0); LYMPHOCYTES # 1.2 10^3/ul (0.8-2.9); LYMPHOCYTES % 15.6 % (15.0-51.0); MEAN CORPUSCULAR HEMOGLOBIN 34.7 pg (29.0-33.0); MEAN CORPUSCULAR HGB CONC 33.4 g/dl (32.0-37.0); MEAN CORPUSCULAR VOLUME 103.8 fl (82.0-101.0); MEAN PLATELET VOLUME 10.5 fl (7.4-10.4); MONOCYTE # 0.9 10^3/ul (0.3-0.9); MONOCYTES % 12.1 % (0.0-11.0); NEUTROPHIL # 5.3 10^3/ul (1.6-7.5); NEUTROPHILS % 69.9 % (39.0-77.0); PLATELET COUNT 151 10^3/UL (140-415); RED BLOOD COUNT 2.91 10^6/ul (4.70-6.10); RED CELL DISTRIBUTION WIDTH 12.1 % (11.5-14.5); WHITE BLOOD COUNT 7.6 10^3/ul (4.8-10.8)
[2017-01-19 13:59] LABS: ALBUMIN 3.5 g/dl (3.3-4.9); POTASSIUM 3.9 mmol/L (3.5-5.1)
[2017-01-19 14:01] LABS: ALBUMIN/GLOBULIN RATIO 1.16; CREATININE 0.82 mg/dl (0.61-1.24); TOTAL PROTEIN 6.5 g/dl (6.1-8.1)
[2017-01-19 14:02] LABS: BILIRUBIN,INDIRECT 0.5 mg/dl (0-1.1); BILIRUBIN,TOTAL 0.5 mg/dl (0.2-1.3); CALCIUM 9.5 mg/dl (8.4-10.2)
[2017-01-19 14:09] VITALS: BP 146/64; PULSE 73; RESP 20
[2017-01-19] MEDS ORDERED: BARIUM SULFATE 135 ML (E-Z HD) PO ONE (14:43)
[2017-01-19] MEDS: CALCIUM CARBONATE 500 MG CHEW TAB PO SCH ×10 (15:00→23:33)
--- NOTE | 2017-01-19 16:34 | RADRPT ---
PROCEDURE: Radiological examination of the esophagus CLINICAL INDICATION: Dysphagia TECHNIQUE: The patient was NPO. The patient was given 8 ounces of barium with CO2 crystals orally via a cup. Subsequently videofluoroscopy was performed was performed. Routine esophageal images we re obtained. Fluoroscopy time: 1.0 min COMPARISON: No comparison study available. FINDINGS: Unremarkable oral phase of swallowing. Normal bolus formation and control. Normal lingular movement and propulsion. Normal bolus transfer. No spillage into pharynx. Unremarkable pharyngeal phase of swallowing. Normal swallow reflex. Normal pharyngeal contraction. N o laryngeal penetration identified. No aspiration identified. No pharyngeal residual identified. Normal esophageal position, contour, distensibility, motility, emptying and mucosal pattern. No hiat al hernia identified. No evidence of gastroesophageal reflux. No evidence of esophagitis. No esophag eal mass identified. Limited views of the stomach are unremarkable. RPTAT: AA IMPRESSION: Unremarkable examination. Physician Ayo Date Time Electronically viewed and signed by Physician Ayo on 01/19/2017 16:34 /
[2017-01-19] MEDS: PANTOPRAZOLE 40 MG INJ IV SCH (17:51)
--- NOTE | 2017-01-19 18:13 | PN ---
Date/Time of Note Date/Time of Note DATE: 01/19/17 TIME: 18:11 Assessment/Plan Lines/Catheters IV Catheter Type (from Nrsg): Peripheral IV Long in Place (from Nrsg): No Assessment/Plan Assessment/Plan POD #2, s/p left TKA -pain meds as needed -swallow study per medicine and GI -ASA/SCDs for DVT prophylaxis -OOB with PT -check AM labs -if all tests negative, will likely go home tomorrow Subjective 24 Hr Interval Summary Doing well. Had a choking episode last night apparently while eating with some associated abdominal pain and right sided chest pain. Asymptomatic now. Dr. Lindsey has arranged for a swallow study. Denies knee pain. Progressing with PT. Will plan to to go home upon discharge. Exam/Review of Systems Vital Signs Vitals Vital Signs Date Time Temp Pulse Resp B/P Pulse Ox O2 Delivery O2 Flow Rate FiO2 01/19/17 14:09 73 20 146/64 98 Room Air 01/19/17 07:51 98.5 01/17/17 20:00 2.0 Intake and Output 01/18/17 01/18/17 01/19/17 15:00 23:00 07:00 Intake Total 1500 ml 1500 ml Output Total 500 ml 1200 ml Balance 1000 ml 300 ml Exam Free Text/Dictation Dressing dry Incision clean, dry, and intact without redness or drainage Thigh soft 5/5 Quadriceps, Tibialis Anterior, EHL, Gastroc, Soleus, Peroneals Normal sensation Palpable DT/PT, CR <2 sec No distal edema Results Result Diagram: 01/19/17 1335 01/19/17 1335 RUTHY CHUNG PA-C Jan 19, 2017 18:13
--- NOTE | 2017-01-19 18:18 | PDOCDIS ---
Discharge Instructions DIAGNOSIS Discharge Diagnosis: s/p left TKA CONDITION Patient Condition: Good HOME CARE INSTRUCTIONS: Diet Instructions: RegularSpecial Diet: RD ACTIVITY: Activity Restrictions: Slowly Increase Activity Rest between Activity Avoid heavy lifting Do not operate Machinery Do not operate Power Tool Avoid Heavy Housework Keep Limb Elevated Bathing Restrictions: Shower FOLLOW UP/APPOINTMENTS Appointments follow up in the office on 01/27/17 OTHER ORDERS: Other Orders: DOS: @@ S/P TKA Physical Therapy: Three times per week at home x 2 weeks Daily in Rehab/SNF WB STATUS: WBAT 1. Strengthening exercises for both upper and un-operated lower extremities. 2. Gait training with front wheeled walker 3. Active range of motion exercises to operative knee. 4. When not working on knee range of motion exercises, distal towel roll under operative ankle/distal calf to promote full extension. 5. DO NOT PUT ANYTHING BEHIND OPERATIVE KNEE!!! 6. Quadriceps and hamstring strengthening. 7. May switch to cane in contra lateral hand 6 weeks after surgery. 8. Physical Therapy can open case if nursing is not available. 9. Use Ice Machine as instructed from date of surgery while at rest 3X/day. 10. Patient requires mobile SCDs to reduce risk of developing DVT following TKA. Patient will use the mobile SCDs for 30 days postoperatively. Bathing assistance by home health aide twice weekly if Medicare patient. Occupational Therapy: Evaluation for assistive devices and ADL training. Wound Care: Keep incision dry & covered with Tegaderm until first visit with Dr. Cavazos Anticoagulation Orders: Enteric Coated Aspirin 325 mg po bid x 6 weeks from date of surgery Follow-up:Call for an appointment with Dr. Cavazos in 1 week after discharged from hospital at DME Orders: FWW, 3-in-1 Commode, Polar ice machine, Mobile SCDs RUTHY CHUNG PA-C Jan 19, 2017 18:18
[2017-01-19] MEDS ORDERED: PREG50CA PO (18:20)
[2017-01-19] MEDS ORDERED: PANT40VI7 IV (18:20)
[2017-01-19] MEDS ORDERED: HYDR-905 PO (18:20)
[2017-01-19] MEDS ORDERED: TRAM50TA2 PO (18:20)
[2017-01-19] MEDS ORDERED: ASPI325T32 PO (18:20)
[2017-01-19 20:03] VITALS: BP 168/78; RESP 18
[2017-01-19] MEDS: ATORVASTATIN 20 MG TAB PO SCH (20:20)
[2017-01-19] MEDS: BENAZEPRIL 20 MG TAB PO SCH (20:20)
[2017-01-20] VITALS: BP 127/63; RESP 18
[2017-01-20] MEDS: CALCIUM CARBONATE 500 MG CHEW TAB PO SCH ×5 (00:40→11:00)
[2017-01-20] MEDS: traMADol 50 MG TAB PO SCH (05:25)
[2017-01-20] MEDS: PANTOPRAZOLE 40 MG INJ IV SCH (05:25)
[2017-01-20 05:45] LABS: HEMATOCRIT 31.2 % (42.0-52.0); HEMOGLOBIN 9.9 g/dl (14.0-18.0)
[2017-01-20 05:58] LABS: MAGNESIUM 1.9 mg/dl (1.7-2.5); PHOSPHORUS 3.7 mg/dl (2.5-4.9)
[2017-01-20 06:01] LABS: ALBUMIN 3.5 g/dl (3.3-4.9); POTASSIUM 4.1 mmol/L (3.5-5.1)
[2017-01-20 06:04] LABS: ALBUMIN/GLOBULIN RATIO 1.06; BILIRUBIN,INDIRECT 0.8 mg/dl (0-1.1); BILIRUBIN,TOTAL 0.8 mg/dl (0.2-1.3); CALCIUM 9.6 mg/dl (8.4-10.2); CREATININE 0.81 mg/dl (0.61-1.24); TOTAL PROTEIN 6.8 g/dl (6.1-8.1)
[2017-01-20 07:54] VITALS: BP 163/79; RESP 20
[2017-01-20] MEDS: AMLODIPINE 5 MG TAB PO SCH (08:22)
[2017-01-20] MEDS: CELECOXIB 200 MG CAP PO SCH (08:23)
[2017-01-20] MEDS: ASPIRIN (EC) 325 MG TAB PO SCH (08:23)
[2017-01-20] MEDS: PREGABALIN 50 MG CAP PO SCH (08:23)
[2017-01-20] MEDS: DOCUSATE SODIUM 100 MG CAP PO SCH (08:23)
--- NOTE | 2017-01-20 09:04 | PN ---
Date/Time of Note Date/Time of Note DATE: 01/20/17 TIME: 09:02 Assessment/Plan Lines/Catheters IV Catheter Type (from Nrsg): Peripheral IV Long in Place (from Nrsg): No Assessment/Plan Assessment/Plan Stable POD #3, s/p left TKA -pain meds as needed -ASA/SCDs -dressing changed -OOB with PT -d/c home today if okay with medicine -follow up in the office in 1 week Subjective 24 Hr Interval Summary No acute overnight events. Denies pain. Abdominal pain resolved. Patient had a large bowel movement and feels much better overall. Mild knee pain. Swallow study negative. Would like to go home today. Exam/Review of Systems Vital Signs Vitals Vital Signs Date Time Temp Pulse Resp B/P Pulse Ox O2 Delivery O2 Flow Rate FiO2 01/20/17 07:54 97.4 57 20 163/79 98 01/19/17 14:09 Room Air 01/17/17 20:00 2.0 Intake and Output 01/19/17 01/19/17 01/20/17 15:00 23:00 07:00 Intake Total 100 ml 600 ml 2150 ml Output Total 200 ml 1450 ml Balance 100 ml 400 ml 700 ml Exam Free Text/Dictation Dressing dry Incision clean, dry, and intact without redness or drainage Thigh soft 5/5 Quadriceps, Tibialis Anterior, EHL, Gastroc, Soleus, Peroneals Normal sensation Palpable DT/PT, CR <2 sec No distal edema Results Result Diagram: 01/20/17 0448 01/20/17 0448 RUTHY CHUNG PA-C Jan 20, 2017 09:04
--- NOTE | 2017-01-20 10:49 | CONS ---
Date/Time of Note Date/Time of Note DATE: 01/20/17 TIME: 10:47 Assessment/Plan Assessment/Plan Additional Assessment/Plan 1. Stable and doing well post op left knee 2. Dysphagia has resolved 3. Labs rev and can be dc if ok with ortho and PT Consultation Date/Type/Reason Admit Date/Time Jan 17, 2017 at 05:41 Detailed Summary Respiratory: No cough, No shortness of breath Cardiovascular: No chest pain Gastrointestinal: no complaints, other (he know has no diff swallowing), No nausea Genitourinary: no complaints Exam/Review of Systems Vital Signs Vitals Vital Signs Date Time Temp Pulse Resp B/P Pulse Ox O2 Delivery O2 Flow Rate FiO2 01/20/17 07:54 97.4 57 20 163/79 98 01/19/17 14:09 Room Air 01/17/17 20:00 2.0 Intake and Output 01/19/17 01/19/17 01/20/17 14:59 22:59 06:59 Intake Total 100 ml 600 ml 2150 ml Output Total 200 ml 1450 ml Balance 100 ml 400 ml 700 ml Exam Neck: No jvd Respiratory: clear to auscultation Cardiovascular: regular rate and rhythm Gastrointestinal: soft, No distended, No splenomegaly, No tender Extremities: No edema (and no calf tend) Results Result Diagram: 01/20/178 01/20/17 0448 Results 24 hrs Laboratory Tests Test 01/19/17 13:35 01/20/17 04:48 White Blood Count 7.6 Red Blood Count 2.91 L Hemoglobin 10.1 L 9.9 L Hematocrit 30.2 L 31.2 L Mean Corpuscular Volume 103.8 H Mean Corpuscular Hemoglobin 34.7 H Mean Corpuscular Hemoglobin Concent 33.4 Red Cell Distribution Width 12.1 Platelet Count 151 Mean Platelet Volume 10.5 H Neutrophils % 69.9 Lymphocytes % 15.6 Monocytes % 12.1 H Eosinophils % 2.0 Basophils % 0.1 Nucleated Red Blood Cells % 0.0 Neutrophils # 5.3 Lymphocytes # 1.2 Monocytes # 0.9 Eosinophils # 0.2 Basophils # 0.0 Nucleated Red Blood Cells # 0.0 Sodium Level 139 138 Potassium Level 3.9 4.1 Chloride Level 103 103 Carbon Dioxide Level 30 30 Anion Gap 10 9 Blood Urea Nitrogen 16 13 Creatinine 0.82 0.81 Glucose Level 98 93 Calcium Level 9.5 9.6 Total Bilirubin 0.5 0.8 Direct Bilirubin 0.00 0.00 Indirect Bilirubin 0.5 0.8 Aspartate Amino Transf (AST/SGOT) 39 39 Alanine Aminotransferase (ALT/SGPT) 39 41 Alkaline Phosphatase 53 56 Total Protein 6.5 6.8 Albumin 3.5 3.5 Globulin 3.00 3.30 H Albumin/Globulin Ratio 1.16 1.06 Amylase Level 72 64 Lipase 82 Phosphorus Level 3.7 Magnesium Level 1.9 Medications Medications Current Medications Miscellaneous Information 1 ea NOTE XX ; Start 01/17/17 at 06:00; Stop 01/21/17 at 05:59 Atorvastatin Calcium (Lipitor) 20 mg QHS PO Last administered on 01/19/17 20: 20; Admin Dose 20 MG; Start 01/17/17 at 21:00 Celecoxib (Celebrex) 200 mg DAILY PO Last administered on 01/20/17 08:23; Admin Dose 200 MG; Start 01/18/17 at 09:00 Tramadol HCl (Ultram) 50 mg Q6 PO Last administered on 01/20/17 05:25; Admin Dose 50 MG; Start 01/17/17 at 12:00; Stop 01/20/17 at 11:59 Acetaminophen/ Hydrocodone Bitart ([place] (5/325)) 1 tab Q4H PRN PO PAIN LEVEL 1 -3; Start 01/17/17 at 10:00 Acetaminophen/ Hydrocodone Bitart ([place] (5/325)) 2 tab Q4H PRN PO PAIN LEVEL 4 -7 Last administered on 01/20/17 10:17; Admin Dose 2 TAB; Start 01/17/17 at 10: 00 Ondansetron HCl (Zofran Inj) 4 mg Q6H PRN IV NAUSEA AND/OR VOMITING; Start at 10:00 Bisacodyl (Dulcolax Supp) 10 mg Q12H PRN [place] CONSTIPATION; Start 01/17/17 at 10: 00 Magnesium Hydroxide (Milk Of Mag) 30 ml BID PRN PO CONSTIPATION; Start at 10:00 Sodium Biphosphate/ Sodium Phosphate (Fleet Enema) 133 ml DAILY PRN [place] CONSTIPATION Last administered on 01/19/17 15:21; Admin Dose 133 ML; Start at 10:00 Docusate Sodium (Colace) 100 mg BID PO Last administered on 01/20/17 08:23; Admin Dose 100 MG; Start 01/17/17 at 21:00 Diphenhydramine HCl (Benadryl) 25 mg Q6H PRN PO PRURITUS; Start 01/17/17 at 10: 00 Aspirin (Ecotrin) 325 mg BID PO Last administered on 01/20/17 08:23; Admin Dose 325 MG; Start 01/18/17 at 09:00 Amlodipine Besylate (Norvasc) 5 mg DAILY PO Last administered on 01/20/17 08: 22; Admin Dose 5 MG; Start 01/17/17 at 14:30 Benazepril HCl 20 mg 20 mg HS PO Last administered on 01/19/17 20:20; Admin Dose 20 MG; Start 01/17/17 at 21:00 Sodium Chloride 1,000 ml @ 100 mls/hr Q10H IV Last administered on 01/19/17 08:41; Admin Dose 100 MLS/HR; Start 01/18/17 at 08:30 Acetaminophen (Ofirmev 1000mg/ 100ml Iv) 100 ml @ 400 mls/hr Q6H PRN IVPB PAIN 7-10/10 Last administered on 01/19/17 20:21; Admin Dose 400 MLS/HR; Start 01/19/17 at 09:30 Hydromorphone HCl 0.5 mg 0.5 mg Q6H PRN IV PAIN Last administered on 01/19/17 22:42; Admin Dose 0.5 MG; Start 01/19/17 at 09:30 Acetaminophen (Ofirmev 1000mg/ 100ml Iv) 100 ml @ 400 mls/hr Q12 PRN IVPB MODERATE PAIN LEVEL 4-6; Start 01/19/17 at 09:30 Pantoprazole (Protonix Iv) 40 mg BID@06,18 IV Last administered on 01/20/17 05 :25; Admin Dose 40 MG; Start 01/19/17 at 18:00 Pregabalin (Lyrica) 50 mg BID PO Last administered on 01/20/17 08:23; Admin Dose 50 MG; Start 01/19/17 at 21:00 Calcium Carbonate (Tums) 500 mg Q2HWA PO Last administered on 01/20/17 08:23; Admin Dose 500 MG; Start 01/20/17 at 05:00 ALEJANDRO JOHNSON MD Jan 20, 2017 10:49
--- NOTE | 2017-01-20 13:13 | PN ---
DATE: 01/20/2017 SUBJECTIVE: The patient is postoperative left knee surgery, left knee replacement and he does have a history of prostate cancer, status post prostatectomy, and also insertion of a semi-rigid penile i mplant. I did insert a Long catheter on him prior to surgery and on the first day postoperative hi s catheter was removed. The patient is feeling fairly comfortable. He has been voiding. He denies any burning or stinging on urination, and in fact, he is ready to be going home. OBJECTIVE: VITAL SIGNS: His temperature is 97.4, pulse is 57, respirations 20, blood pressure 163/79. ABDOMEN: Soft and the patient, again, is voiding well. LABORATORY: His hemoglobin today is 9.9, hematocrit 31.2. White count was 7.6. BUN is 13, creatin ine is 0.81. The patient basically is doing well, he is voiding without any problems and he is about to go home a nd urologically he is okay. Dictated By: CORIE CHACON/FRANK Conf#: [id number] DID#: [id number]
--- NOTE | 2017-01-20 13:24 | DS ---
DATE OF ADMISSION: 01/17/2017 DATE OF DISCHARGE: 01/20/2017 CONDITION UPON DISCHARGE: Stable ADMITTING DIAGNOSIS: Left knee osteoarthritis. DISCHARGE DIAGNOSIS: Status post left total knee arthroplasty. PROCEDURE PERFORMED: Left total knee arthroplasty. HOSPITAL COURSE: This is an 81-year-old gentleman who was seen in the clinic initially complaining of left knee pain. Radiographs were obtained and demonstrated advanced osteoarthritis of the left knee. He had undergone conservative modalities unsuccessfully and it was thought he would benefit from a left total knee arthroplasty. On 01/17/2017, the patient was taken to the operating room and underwent a left total knee arthroplasty. There were no intraoperative complications. The patient tolerated the procedure well. He was taken to the recovery room in stable condition. Pain was well controlled with oral pain medication. He was started on aspirin and SCDs for DVT prophylaxis. He developed dysphagia on postoperative day 1 and had a GI workup as well as a swallow study which was unremarkable. He remained hemodynamically stable and neurovascularly intact throughout his hospital stay. He began physical therapy on postoperative day #1 and was deemed stable for discharge on postoperative day #3. Prior to discharge, the incision was inspected and noted to be clean, dry and intact. Dressing changes were done prior to patient going home. LABORATORY ANALYSIS: Hemoglobin 9.9, hematocrit 31.2. Chemistry panel within normal limits. DISCHARGE MEDICATIONS: 1. [place] 7.5/325 mg. 2. Aspirin 325 mg 3. Protonix 40 mg. 4. Lyrica 50 mg. 5. Tramadol 50 mg. Additionally, the patient is to resume all his normal home medications. DISCHARGE INSTRUCTIONS: Patient will be discharged home in stable condition. He is to resume a normal diet. Activity includes weightbearing as tolerated on the left lower extremity. He began physical therapy with home health. He will be discharged home with the medications noted above and is to continue all of his normal home medications. The patient is to call the office or go to the emergency room for any concerns, including increased redness, swelling, drainage , fever or any concern regarding the operation or site of incision. FOLLOWUP: The patient is to follow up in the office on 01/27/2017. Dictated By: RUTHY NEAL/FRANK Conf#: [id number] DID#: [id number] [facility]
== END 2017-01-20 12:45 | disposition home health service (06) | DRG 470 ==
LOC: REC 05:41 → EDSTATUS 09:30 → MS1 11:00
PROVIDERS: ADMIT Orthopaedic Surgery; ATTEND Orthopaedic Surgery
PROC: 0SRD0J9 Replacement of Left Knee Joint with Synthetic Substitute, Cemented, Open Approach (ICD-10-PCS; principal; 2017-01-17 07:00)
DX: M17.12 Unilateral primary osteoarthritis, left knee (principal); E87.1 Hypo-osmolality and hyponatremia; I10 Essential (primary) hypertension; I25.10 Atherosclerotic heart disease of native coronary artery without angina pectoris; E78.5 Hyperlipidemia, unspecified; R10.9 Unspecified abdominal pain; R13.10 Dysphagia, unspecified; Z85.46 Personal history of malignant neoplasm of prostate
CPT/HCPCS: 71010; 73560; 74230; 80048; 80053; 81001; 81003; 82150; 83690; 83735; 84100; 84300; 85014; 85018; 85025; 86850; 86900; 86901; 86920; 87081; 87086; 88304; 88311; 92526; 92610; 93005; 97110; 97116; 97162; 97167; 97530; Z7610; C1776; C9113; C9290; J0131; J0171; J0360; J0690; J0697; J0735; J1100; J1170; J1885; J2250; J2274; J2405; J2710; J3010; J3370; J7030; J7120

== ENCOUNTER → 2017-01-27 | Outpatient (CLI) | payer MEDICARE, OTHER ==
[~2017-01-27] MED LIST: AMLO2.5T78 PO; ASPI325T32 PO; ATOR40TA68 PO; BENA20TA48 PO; HYDR-905 PO; PANT40VI7 IV; PREG50CA PO; TRAM50TA2 PO
--- NOTE | 2017-01-27 11:39 | HKNOTE ---
DATE OF SERVICE: 01/27/2017 INTERVAL HISTORY: The patient presents today for his first postoperative evaluation. He is 10 days status post left total knee arthroplasty. He is doing well overall. His pain has been moderate, b ut controlled with the [place] he has been taking. He has also been taking aspirin twice daily for DV T prophylaxis as recommended. He denies any fevers or chills. He is progressing with home health p hysical therapy. He presented today for his first postoperative evaluation. PHYSICAL EXAMINATION: On exam today he is alert and oriented x4 and in no acute distress. Exam of the left knee demonstrates the incision to be clean, dry and intact. Es are in place. Range o f motion is 0-85 degrees. He does have some moderate soft tissue swelling distally. Homans sign is negative. Varus and valgus forces are stable. There is no erythema or warmth noted. He is neurov ascularly intact distally. IMAGING: X-rays of the left knee were obtained today and reviewed by me. They demonstrate good roberta tomic alignment of the prosthesis with no fracture or dislocation identified. ASSESSMENT: Ten days status post left total knee arthroplasty, doing well. PLAN: The es were removed today and Steri-Strips were applied. Given the amount of soft tissu e swelling we will send him to the vascular group down the street to obtain a Doppler study to rule out a deep venous thrombosis. In lieu of this being negative, he will continue aspirin twice daily for a period of 6 weeks for DVT prophylaxis. The patient's [place] 7.5/325, quantity #60 with 0 refi lls was refilled today here in the office. He will transition to outpatient physical therapy as derrick murray. I will see him back in 4 weeks for repeat evaluation. He will call the office if he has any concerns in the meantime. Dictated By: RUTHY GALARZA for SHELTON NEAL/FRANK Conf#: [id number] DID#: [id number]
--- NOTE | 2017-01-27 16:32 | RADRPT ---
PROCEDURE: XR Left Knee. CLINICAL INDICATION: Left knee pain. Postop. TECHNIQUE: Two views. Frontal and lateral. COMPARISON: 01/17/2017. FINDINGS: There is no fracture or dislocation. Anterior skin evert and surgical drain have been removed. There are vascular calcifications prese nt consistent with atherosclerosis. There is a total left knee arthroplasty which appears satisfactory. There is no lytic or blastic lesion. There is no joint effusion. IMPRESSION: 1. Atherosclerosis. 2. Satisfactory postoperative appearance of the left knee. RPTAT: QQ .Jam Smallwood MD, MD Date Time Electronically viewed and signed by .Jam Smallwood MD, MD on 01/27/2017 16:31 .R/
== END | disposition home or self-care (01) ==
LOC: HKI 09:51
PROVIDERS: ATTEND Orthopaedic Surgery
DX: Z47.1 Aftercare following joint replacement surgery (principal); Z96.652 Presence of left artificial knee joint

== ENCOUNTER → 2017-02-27 | Outpatient (CLI) | payer MEDICARE, OTHER | END | disposition home or self-care (01) | LOC: HKI 09:47 | PROVIDERS: ATTEND Orthopaedic Surgery | DX: Z47.1 Aftercare following joint replacement surgery (principal); M17.12 Unilateral primary osteoarthritis, left knee; Z96.652 Presence of left artificial knee joint ==

== ENCOUNTER → 2017-04-12 | Outpatient (CLI) | payer MEDICARE, OTHER ==
--- NOTE | 2017-04-12 13:39 | HKNOTE ---
DATE OF SERVICE: 04/12/2017 INTERVAL HISTORY: The patient presents today for followup evaluation on his left knee. 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 I received a phone call from his this morning stating that he is having some lower extremity swelling and is concerned. He is doing physical therapy, but saw another physician who recommended he come back in for evaluation. The patient denies any calf pain or tenderness. He completed his 6 weeks course of aspirin and is now taking a baby aspirin daily. He denies any fevers or chills. He is here today for followup evaluation of the left knee. PHYSICAL EXAMINATION: Today, he is alert and oriented x4 and in no acute distress. He is ambulating without any assistive device. Exam of the incision demonstrates it to be clean, dry and intact. It is well healed. There is no significant effusion. Homans sign is negative. He does have some 2+ pitting edema distally around the ankle. Compartments are otherwise soft. He is neurovascularly intact distally. Additionally, range of motion is 0 to 130 degrees. IMAGING: X-rays of the left knee were obtained today and reviewed by me. They demonstrate good anatomic alignment with no fracture or dislocation identified. ASSESSMENT: Three months status post left total knee arthroplasty. PLAN: The patient does have some dependent lower extremity swelling, most around the ankle joint. He included his 6 week course of aspirin and is on a baby aspirin daily, therefore the suspicion for DVT is low at this time. I do not suspect any infection, as he has no erythema or warmth and denies any fevers or chills. However, given the leg swelling we will obtain a venous Doppler to rule out DVT. In lieu of this being negative, we have advised him to ice his leg and elevate it above the level of his heart. We will see him back in approximately 2 months for a followup evaluation. Dictated By: RUTHY GALARZA for SHELTON NEAL/FRANK Conf#: [id number] DID#: [id number] MTDD
--- NOTE | 2017-04-12 13:44 | RADRPT ---
PROCEDURE: XR left knee. CLINICAL INDICATION: Knee pain. TECHNIQUE: AP weightbearing, lateral weightbearing and sunrise views are available for review. COMPARISON: 01/27/2017 FINDINGS: There is a total knee replacement. There is no evidence of loosening of the prosthesis. There is no evidence of hardware failure. The osseous structures are normal in mineralization, architecture and alignment No acute fracture or dislocation is seen.No osseous lesions are identified. The soft tiss ues are unremarkable . IMPRESSION: Unremarkable total knee replacement. RPTAT: HGDB .Slick Perera MD, MD Date Time Electronically viewed and signed by .Slick Perera MD, MD on 04/12/2017 13:43 .B/
== END | disposition home or self-care (01) ==
LOC: HKI 11:22
PROVIDERS: ATTEND Orthopaedic Surgery
DX: M25.562 Pain in left knee (principal); R22.42 Localized swelling, mass and lump, left lower limb; Z96.652 Presence of left artificial knee joint
CPT/HCPCS: 73562; G0463